=== PATIENT | male | born 1990 | race Asian ===

== ENCOUNTER 2017-06-19 14:48 | Day surgery (SDC) | payer OTHER ==
[~2017-06-19] VITALS: Ht 182.9 cm; Wt 89.3 kg
[2017-06-19 15:16] VITALS: BP 137/89; PULSE 61; TEMP 99.2
[2017-06-19 17:55] VITALS: BP 139/71; PULSE 67; TEMP 98.9
[2017-06-19 18:10] VITALS: BP 130/96; PULSE 59
[2017-06-19 18:25] VITALS: BP 123/81; PULSE 60
[2017-06-19 19:53] VITALS: BP 125/74; PULSE 72
== END 2017-06-19 18:32 | disposition home or self-care (01) ==
LOC: SDCO 14:48
DX: K21.0 Gastro-esophageal reflux disease with esophagitis (principal); K26.7 Chronic duodenal ulcer without hemorrhage or perforation; Z68.26 Body mass index [BMI] 26.0-26.9, adult
CPT/HCPCS: OP; J2250; J3010; J7030